=== PATIENT | female | born 1970 | race Caucasian/White ===

== ENCOUNTER 2018-08-12 10:23 | Day surgery (SDC) | payer BC ==
[~2018-08-12 10:23] MED LIST: Lactated Ringers 1,000 ML IV SCH
--- NOTE | 2018-08-12 11:47 | PCM.PREANE ---
Preanesthetic Assessment - Procedure Proposed Procedure: Colonoscopy - Anesthesia/Transfusion/Family Hx Anesthesia History: Prior Anesthesia Without Reaction Family History of Anesthesia Reaction: No Transfusion History: No Prior Transfusion(s) Intubation History: Unknown - Review of Systems General: No Symptoms, Other (Obesity) Pulmonary: Other (Asthma/smoker-uses advair daily) Cardiovascular: No Symptoms Gastrointestinal: Other (GERD) Neurological: Other (assorted joint problems) - Physical Assessment NPO Status Date: 08/11/18 NPO Status Time: 22:00 O2 Sat by Pulse Oximetry: 94 Respiratory Rate: 15 Vital Signs: Last Vital Signs Temp 98.1 F 08/12/18 11:05 Pulse 78 08/12/18 11:05 Resp 15 08/12/18 11:05 BP 134/72 08/12/18 11:05 Pulse Ox 94 L 08/12/18 11:05 Height: 5 ft 9 in Weight: 242 lb ASA Class: 2 Mental Status: Alert & Oriented x3 Airway Class: Mallampati = 1 Dentition: Reports: Normal Dentition Thyro-Mental Finger Breadths: 3 Mouth Opening Finger Breadths: 3 ROM/Head Extension: Full Lungs: Clear to Auscultation, Normal Respiratory Effort Cardiovascular: Regular Rate, Regular Rhythm, No Murmurs - Allergies Allergies/Adverse Reactions: Allergies Allergy/AdvReac Type Severity Reaction Status Date / Time No Known Allergies Allergy Verified 08/06/18 14:04 - Blood Blood Available: No Product(s) Available: None - Anesthesia Plan Pre-Op Medication Ordered: None - Acknowledgements Anesthesia Type Planned: MAC Pt an Appropriate Candidate for the Planned Anesthesia: Yes Alternatives and Risks of Anesthesia Discussed w Pt/Guardian: Yes Pt/Guardian Understands and Agrees with Anesthesia Plan: Yes PreAnesthesia Questionnaire HEENT History: Reports: Other (See Below) Other HEENT History: wears glasses Respiratory History: Reports: Asthma Gastrointestinal History: Reports: GERD Genitourinary History: Reports: None 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 , Musculoskeletal History: Reports: Fracture Other Musculoskeletal History: hx fx wrist Endocrine/Metabolic History: Reports: Obesity/BMI 30+ Hematologic History: Reports: B12 Deficiency - Past Surgical History Head Surgeries/Procedures: Reports: None GI Surgical History: Reports: Hernia, Abdominal Female Surgical History: Reports: Hysterectomy, Other (See Below) Other Female Surgeries/Procedures: laparotomy/salpingectomy for ectopic - SUBSTANCE USE Smoking Status *Q: Current Every Day Smoker Tobacco Use Within Last Twelve Months: Cigarettes Recreational Drug Use History: No - HOME MEDS Home Medications: Home Meds Fluticasone/Salmeterol [Advair 250-50] 1 puff INH BID 12/17/14 [History] Albuterol [Ventolin HFA] 2 puff INH ASDIRECTED PRN 08/06/18 [History] Cyanocobalamin (Vitamin B-12) [Vitamin B-12] 1 mg CHEW DAILY 08/06/18 [History] Ibuprofen 2 tab PO ASDIRECTED PRN 08/06/18 [History] Ranitidine HCl 1 tab PO BID 08/06/18 [History] - CURRENT (IN HOUSE) MEDS Current Meds: Current Medications Lactated Ringer's (Ringers, Lactated) 1,000 mls @ 125 mls/hr IV ASDIRECTED [facility] Last Admin: 08/12/18 11:22 Dose: 125 mls/hr
[2018-08-12] MEDS ORDERED: Lidocaine 2% 5 ML SDV ONE (13:20)
[2018-08-12] MEDS ORDERED: fentaNYL 100 MCG/2 ML SDV ONE ×2 (13:20→13:59)
[2018-08-12] MEDS ORDERED: Propofol 200 MG/20 ML SDV ONE ×2 (13:20→13:57)
--- NOTE | 2018-08-12 14:19 | PCM.OPNOTE ---
- General Post-Op/Procedure Note Date of Surgery/Procedure: 08/12/18 Operative Procedure(s): Colonoscopy with cold rectal polypectomy 2 Pre Op Diagnosis: Desire for colorectal cancer screening Post-Op Diagnosis: Rectal polyp 2 Anesthesia Technique: MAC (ASA II) Primary Surgeon: Reji Baires Condition: Good Free Text/Narrative:: DICTATION [id number] CPT CODE 90011
[2018-08-12] MEDS ORDERED: Lactated Ringers 1,000 ML IV SCH (14:30)
--- NOTE | 2018-08-12 14:35 | PCM.POSTAN ---
POST ANESTHESIA ASSESSMENT - MENTAL STATUS Mental Status: Alert, Oriented - RESPIRATORY Respiratory Status: Respiratory Rate WNL, Airway Patent, O2 Saturation Stable - CARDIOVASCULAR CV Status: Pulse Rate WNL, Blood Pressure Stable - GASTROINTESTINAL GI Status: No Symptoms - POST OP HYDRATION Hydration Status: Adequate & Stable
--- NOTE | 2018-08-12 14:36 | PCM48HPAN ---
Post Anesthesia Note - EVALUATION WITHIN 48HRS OF ANESTHETIC Vital Signs in Normal Range: Yes Patient Participated in Evaluation: Yes Respiratory Function Stable: Yes Airway Patent: Yes Cardiovascular Function Stable: Yes Hydration Status Stable: Yes Pain Control Satisfactory: Yes Nausea and Vomiting Control Satisfactory: Yes Mental Status Recovered: Yes Resp Rate: 12
--- NOTE | 2018-08-12 14:53 | OR ---
SURGEON: Reji Baires M.D. DATE OF PROCEDURE: 08/12/2018 OPERATION PERFORMED: Colonoscopy with cold rectal polypectomy x2. ANESTHESIA: MAC. ASA CLASSIFICATION: II. PREOPERATIVE DIAGNOSIS: Desire for colorectal cancer screening. POSTOPERATIVE DIAGNOSIS: Two small rectal polyps. DESCRIPTION OF PROCEDURE: The patient was taken to the endoscopy room and positioned on the endoscopy table in the left lateral decubitus position. Time-out was called for appropriate identification of the patient and procedure. Monitored anesthesia care was provided. The colonoscope was inserted into the rectum and advanced with moderate difficulty to the cecum where the colonoscope was retroflexed to visualize the ascending colon from below. The colonoscope was then straightened and slowly withdrawn. The cecum, ascending colon, hepatic flexure, transverse colon, splenic flexure, descending colon, and sigmoid colon showed no tumors, polyps, diverticula, or angiodysplasia. No inflammatory bowel disease was encountered. No diverticular changes were noted in the sigmoid colon. Once the colonoscope was withdrawn to the rectum, two small polyps were encountered and removed with the cold biopsy forceps. These were sent as a single specimen. The colonoscope was retroflexed to visualize the anal orifice from above. No acute hemorrhoidal changes were noted. The colonoscope was then straightened, the rectum aspirated, and the colonoscope removed. The patient tolerated the procedure well and was taken to recovery room in stable condition. RA [place] /[id number]
[2018-08-12 14:58] VITALS: BP 118/73
== END 2018-08-12 15:10 | disposition home or self-care (01) ==
LOC: MW.SDS 10:23
PROVIDERS: ATTEND Surgery
DX: Z12.11 Encounter for screening for malignant neoplasm of colon (principal); K63.5 Polyp of colon; J45.909 Unspecified asthma, uncomplicated; E66.9 Obesity, unspecified; Z68.35 Body mass index [BMI] 35.0-35.9, adult; F17.210 Nicotine dependence, cigarettes, uncomplicated; K21.9 Gastro-esophageal reflux disease without esophagitis; Z79.51 Long term (current) use of inhaled steroids
CPT/HCPCS: 45380; J2704; J3010; J7120

== ENCOUNTER 2021-11-21 10:12 | Day surgery (SDC) | payer OTHER ==
[~2021-11-21 10:12] MED LIST changes: +Midazolam 1 MG/ML 2 ML SDV ONE; +fentaNYL 100 MCG/2 ML SDV ONE
[2021-11-21] MEDS ORDERED: Propofol 200 MG/20 ML SDV ONE ×3 (11:21→12:36)
--- NOTE | 2021-11-21 12:55 | PCM.OPNOTE ---
- General Post-Op/Procedure Note Date of Surgery/Procedure: 11/21/21 Operative Procedure(s): Colonoscopy Pre Op Diagnosis: Intermittent rectal bleeding. Change in bowel habits. Personal history of colon polyps. Post-Op Diagnosis: No evidence of neoplasia. Anesthesia Technique: MAC (ASA II) Primary Surgeon: Reji Baires Clock Maker: Raven Zepeda Condition: Good Free Text/Narrative:: DICTATION [id number] CPT CODE 58113
--- NOTE | 2021-11-21 12:55 | PCM.POSTAN ---
POST ANESTHESIA ASSESSMENT - MENTAL STATUS Mental Status: Alert - VITAL SIGNS Vital Signs: Last Vital Signs Temp Pulse 62 11/21/21 10:17 Resp 15 11/21/21 10:17 BP 119/71 11/21/21 10:17 Pulse Ox 99 11/21/21 10:17 - RESPIRATORY Respiratory Status: Respiratory Rate WNL - CARDIOVASCULAR CV Status: Pulse Rate WNL - GASTROINTESTINAL GI Status: No Symptoms - POST OP HYDRATION Hydration Status: Adequate & Stable
--- NOTE | 2021-11-21 12:56 | PCM48HPAN ---
Post Anesthesia Note - EVALUATION WITHIN 48HRS OF ANESTHETIC Vital Signs in Normal Range: Yes Patient Participated in Evaluation: Yes Respiratory Function Stable: Yes Airway Patent: Yes Cardiovascular Function Stable: Yes Hydration Status Stable: Yes Pain Control Satisfactory: Yes Nausea and Vomiting Control Satisfactory: Yes Mental Status Recovered: Yes Vital Signs: Last Vital Signs Temp Pulse 62 11/21/21 10:17 Resp 15 11/21/21 10:17 BP 119/71 11/21/21 10:17 Pulse Ox 99 11/21/21 10:17
[2021-11-21] MEDS ORDERED: Lactated Ringers 1,000 ML IV SCH (13:00)
[2021-11-21] MEDS ORDERED: Ketorolac 30 MG/ML SDV ONE (13:28)
[2021-11-21 13:34] VITALS: BP 180/65; PULSE 54
--- NOTE | 2021-11-21 17:39 | OR ---
SURGEON: Reji Baires M.D. DATE OF PROCEDURE: 11/21/2021 OPERATION PERFORMED: Colonoscopy. PRIMARY SURGEON: Reji Baires M.D. RESERVATIONS MANAGER: Prekindergarten Teacher: Raven Zepeda NP student. ANESTHESIA: MAC. ASA CLASSIFICATION: II. PREOPERATIVE DIAGNOSIS: Rectal bleeding with change in bowel habits. POSTOPERATIVE DIAGNOSIS: No evidence of neoplasia. DESCRIPTION OF PROCEDURE: The patient was taken to the endoscopy room and positioned on the endoscopy table in the left lateral decubitus position. Time-out was called for appropriate identification of the patient and procedure. Monitored anesthesia care was provided. The colonoscope was inserted into the rectum and advanced with moderate difficulty to the cecum. The cecum was identified by internal landmarks and external pressure. The colonoscope was retroflexed to visualize the ascending colon from below, then straightened and slowly withdrawn. The cecum, ascending colon, hepatic flexure, transverse colon, splenic flexure, descending colon, sigmoid colon, and rectum were very well visualized. No tumors, polyps, diverticula, or angiodysplastic changes were noted anywhere in the lower gastrointestinal tract. Once the colonoscope was withdrawn to the rectum, it was retroflexed to visualize the anal orifice from above. No tumors or polyps were seen. There were some minor hemorrhoidal changes, but no acute bleeding was noted. The colonoscope was then straightened, the rectum aspirated, and the colonoscope removed. The patient tolerated the procedure well and was taken to recovery room in stable condition. RA / VINNIE /[id number] [place]
== END 2021-11-21 14:21 | disposition home or self-care (01) ==
LOC: MW.SDS 10:12
PROVIDERS: ATTEND Surgery
DX: R19.4 Change in bowel habit (principal); K62.5 Hemorrhage of anus and rectum; K64.9 Unspecified hemorrhoids; J45.909 Unspecified asthma, uncomplicated; K21.9 Gastro-esophageal reflux disease without esophagitis; E66.9 Obesity, unspecified; E53.8 Deficiency of other specified B group vitamins; F17.210 Nicotine dependence, cigarettes, uncomplicated; Z79.899 Other long term (current) drug therapy; Z98.890 Other specified postprocedural states; Z86.010 Personal history of colon polyps; Z68.25 Body mass index [BMI] 25.0-25.9, adult
CPT/HCPCS: 45378; J1885; J2250; J2704; J3010; J7120; 00811

== ENCOUNTER 2022-08-31 07:24 | Emergency (ER) | payer OTHER ==
[2022-08-31] MEDS ORDERED: Bacitracin Oint 28.35 GM Tube TOP STA (07:33)
[2022-08-31] MEDS ORDERED: Lidocaine 2% Viscous Solution 100 ML Bottle PO ONE (07:33)
[2022-08-31] MEDS ORDERED: Acetaminophen/HYDROcodone 325-5 MG Tab PO ONE (07:40)
[2022-08-31] MEDS ORDERED: Lidocaine 5% Oint 35.44 GM Tube TOP STA (07:43)
[2022-08-31 09:38] VITALS: BP 153/90; PULSE 74
== END 2022-08-31 09:38 | disposition home or self-care (01) ==
LOC: MW.ED 07:24
DX: T24.111A Burn of first degree of right thigh, initial encounter (principal); T31.0 Burns involving less than 10% of body surface; K21.9 Gastro-esophageal reflux disease without esophagitis; Z79.899 Other long term (current) drug therapy
CPT/HCPCS: 99283; A9270